=== PATIENT | male | born 1975 | race Caucasian/White ===

== ENCOUNTER 2020-09-12 16:48 | Emergency (ER) | payer BC, SELFPAY ==
[2020-09-12] VITALS (7 sets, daily range): BP systolic 130–142; BP diastolic 80–95; PULSE 65–111; RESP 15–18; TEMP 36.1–36.8; O2SAT 98–99; BMI 24.3
--- NOTE | 2020-09-12 17:19 | EDS_ITS ---
HPI HPI - Psych History of Present Illness Chief Complaint: Mental Health Informant: patient and police/telephone service representative Onset/Context/Timing Onset: - (unclear) Context: Gradual Onset Conflict: Family Timing: Continuous Current Severity: Moderate Maximum Severity: Moderate Worsened by: Situational factors Associated Symptoms Associated Symptoms - Psych: Positive for Paranoia; Negative for Suicidal Thoughts Narrative Narrative: Patient was brought in by police under the request of crisis because of paranoid and unusual behavior. Police state that he was talking about intent's that are placed around the community trying to keep track of him, people trying to get him, he states he took a DNA test and based on the results of that he knows he is not related to any of his biologic family members, he believes that his phone and Internet is being tapped into an watching him so he replaced his phone, he states size drones are flying throughout his neighborhood watching him. They are trying to sell his home. Apparently he was missing for 2 weeks no one knows where he went. Questionable whether these drones are actually visual hallucinations or not, the patient does not have any insight into anything abnormal. He denies any illness recently or injuries. He smokes cigarettes and tried to vape something else once but had a reaction and was seen in the ER at [facility] 4 weeks ago. No recent illness otherwise. PFSH PFSH no medical history Home Medications NK 09/12/20 [History Last Taken Unknown] Allergy/AdvReac Type Severity Reaction Status Date / Time No Known Allergies Allergy Verified 09/12/20 16:49 Social History (Updated 09/12/20 @ 17:[address] Sumanth Vallecillo MD) Smoking Status: Current every day smoker alcohol intake: current alcohol intake frequency: a few times a month Alcohol type: beer substance use type: does not use ROS ROS ED Constitutional Constitutional ED: Denies chills or fever(s) Eyes Eyes: Denies change in vision or diplopia ENT ENT ED: Denies rhinorrhea or sore throat Cardiovascular Cardiovascular: Denies chest pain or palpitations Respiratory/Chest Respiratory/Chest: Denies cough or dyspnea Gastrointestinal Gastrointestinal: Denies abdominal pain, diarrhea, nausea or vomiting Genitourinary Genitourinary ED: Denies dysuria or hematuria Musculoskeletal Musculoskeletal: Denies back pain or neck pain Integumentary Denies abscess or rash Neurologic Neurologic: Denies headache(s), paresthesias or weakness Psychiatric Psychiatric: Reports as per HPI, behavioral changes and paranoia; Denies anxiety or suicidal thoughts EXAM Physical Exam Const Vital Signs: 09/12/20 16:50 09/12/20 17:49 09/12/20 18:00 Temperature 97 F L Temperature Source Temporal Pulse Rate 111 H Respiratory Rate 16 16 16 Blood Pressure 142/95 H Blood Pressure Mean 110 Pulse Ox 98 Oxygen Delivery Method Room Air 09/12/20 19:15 09/12/20 21:28 Temperature Temperature Source Pulse Rate 65 Respiratory Rate 18 16 Blood Pressure 130/84 H Blood Pressure Mean 99 Pulse Ox 99 Oxygen Delivery Method Room Air Positive well nourished and well developed General Appearance ED: well developed and NAD HEENT Reports moist mucous membranes normocephalic and atraumatic Eyes PERRL and EOMs intact bilaterally Neck full ROM and supple Resp normal respiratory effort and clear to auscultation bilaterally Cardio regular rate, regular rhythm and no murmurs GI non-tender and non-distended Auscultation: normoactive bowel sounds Palpation: soft Back/Spine no CVA tenderness General Back: other FROM Extremity normal to inspection General Extremety ED: Negative for edema, pulses abnormal or tenderness General Extremity: Negative for edema or pulses abnormal Neuro oriented x3, CN's II-XII intact bilaterally and no sensory deficits noted Sensorium / Orientation: awake and alert Motor Exam: strength 5/5 throughout Psych denies hallucinations, denies homicidal ideation and denies suicidal ideation Appearance: grossly normal, appropriate and well kempt Attitude: calm Activity / Motor Behavior: appropriate eye contact Speech: normal speech Mood & Affect: other Patient states he feels fine just does not know why he is here. He is cooperative. Skin no rashes or lesions noted and no wounds MDM MDM MDM Narrative Medical decision making narrative: Patient's labs are all normal, and I was able to obtain records from [facility] 4 weeks ago where he was also seen because of symptoms of psychosis but eloped, he did indeed have a head CT that was normal. At this time he is medically cleared and social work/crisis evaluated him, agreeing that he needs to be admitted for further psychiatric evaluation. 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 Will be observed overnight. Lab Data Attestation: I reviewed the patient's lab results. Labs: Laboratory Results - last 24 hr 09/12/20 09/12/20 09/12/20 17:22 17:22 17:26 WBC 9.2 RBC 5.15 Hgb 15.1 Hct 44.6 MCV 86.6 MCH 29.3 MCHC 33.9 RDW Std Deviation 41.0 RDW Coeff of Yamila 12.9 Plt Count 164 MPV 11.0 Immature Gran % (Auto) 0.200 Neut % (Auto) 70.1 H Lymph % (Auto) 20.5 Jack % (Auto) 6.3 Eos % (Auto) 2.4 Baso % (Auto) 0.5 Absolute Neuts (auto) 6.5 Absolute Lymphs (auto) 1.89 Nucleated RBC % 0 Sodium Potassium Chloride Carbon Dioxide Anion Gap BUN Creatinine Estim Creat Clear Calc Est GFR (MDRD) Af Amer Est GFR (MDRD) Non-Af BUN/Creatinine Ratio Glucose Calcium Total Bilirubin AST ALT Alkaline Phosphatase Total Protein Albumin Globulin Albumin/Globulin Ratio TSH Urine Color Yellow Urine Clarity Clear Urine pH 6.0 Ur Specific Oneco 1.015 Urine Protein Negative Urine Glucose (UA) Normal Urine Ketones Negative Urine Occult Blood Negative Urine Nitrite Negative Urine Bilirubin Negative Urine Urobilinogen Normal Ur Leukocyte Esterase Negative Urine RBC 0 SEEN Urine WBC 0 SEEN Ur Squamous Epith Cells 0 SEEN Urine Bacteria 0 SEEN Urine Mucus 0 SEEN Urine Opiates Screen NEGATIVE Urine Methadone Screen NEGATIVE Ur Barbiturates Screen NEGATIVE Ur Phencyclidine Scrn NEGATIVE Ur Amphetamines Screen NEGATIVE U Methamphetamin-MDMA NEGATIVE U Benzodiazepines Scrn NEGATIVE Urine Cocaine Screen NEGATIVE U Cannabinoids Screen NEGATIVE Ur Drug Screen Comment Ethyl Alcohol 09/12/20 09/12/20 17:26 17:26 WBC RBC Hgb Hct MCV MCH MCHC RDW Std Deviation RDW Coeff of Yamila Plt Count MPV Immature Gran % (Auto) Neut % (Auto) Lymph % (Auto) Jack % (Auto) Eos % (Auto) Baso % (Auto) Absolute Neuts (auto) Absolute Lymphs (auto) Nucleated RBC % Sodium 141 Potassium 4.0 Chloride 109 H Carbon Dioxide 28.0 Anion Gap 4 L BUN 13 Creatinine 1.01 Estim Creat Clear Calc 97.37 Est GFR (MDRD) Af Amer 103 Est GFR (MDRD) Non-Af 86 BUN/Creatinine Ratio 12.9 Glucose 99 Calcium 8.5 Total Bilirubin 0.30 AST 11 L ALT 17 Alkaline Phosphatase 59 Total Protein 6.8 Albumin 3.6 Globulin 3.2 Albumin/Globulin Ratio 1.1 TSH 1.05 Urine Color Urine Clarity Urine pH Ur Specific Oneco Urine Protein Urine Glucose (UA) Urine Ketones Urine Occult Blood Urine Nitrite Urine Bilirubin Urine Urobilinogen Ur Leukocyte Esterase Urine RBC Urine WBC Ur Squamous Epith Cells Urine Bacteria Urine Mucus Urine Opiates Screen Urine Methadone Screen Ur Barbiturates Screen Ur Phencyclidine Scrn Ur Amphetamines Screen U Methamphetamin-MDMA U Benzodiazepines Scrn Urine Cocaine Screen U Cannabinoids Screen Ur Drug Screen Comment Ethyl Alcohol 3.0 Discharge Plan Triage Chief Complaint: Mental Health ED Provider: Sumanth Vallecillo Dx/Rx/DC Orders Clinical Impression: Acute psychosis Prescriptions: No Action NK RF: 0 Primary Care Provider: Care Physician,No Primary Referrals: Care Physician,No Primary [Primary Care Provider] - Disposition Disposition: Psychiatric Hospital or Unit Discharge Location: [facility]
[2020-09-12 17:41] LABS: Bacteria 0 SEEN /hpf (None Seen); Mucous, Urine 0 SEEN /hpf (<or=2+); Red Blood Cells-Urine 0 SEEN /hpf (0-5); Squamous Epithelial Cells - UA 0 SEEN /hpf (0-5); White Blood Cells 0 SEEN /hpf (0-5)
[2020-09-12 17:47] LABS: Absolute Lymphocyte Count 1.89 X10^3/uL (0.83-4.51); Absolute Neutrophil Count 6.5 X10^3/uL (2.0-7.7); Basophil# 0.05 X10^3/uL; Basophil% 0.5 % (0-1); Eosinophil# 0.22 X10^3/uL; Eosinophils% 2.4 % (0-5); Hematocrit 44.6 % (40-54); Hemoglobin 15.1 g/dL (13.0-16.5); Lymphocyte # 1.89 X10^3/ul (0.83-4.51); Lymphocyte % 20.5 % (19-41); Mean Corp Hgb Conc 33.9 g/dL (32-36); Mean Corpuscular Hgb 29.3 pg (27.0-32.0); Mean Corpuscular Volume 86.6 fL (80-94); Monocyte# 0.58 X10^3/uL; Monocyte% 6.3 % (0-10); NRBC Flagged by Analyzer 0 % (0-5); Neutrophil # 6.48 X10^3/uL (2.7-7.7); Neutrophil % 70.1 % (47-70); Platelet Count 164 K/mm3 (150-450); RBC Distribution Width CV 12.9 % (11.6-14.6); Red Blood Count 5.15 M/mm3 (4.6-6.2); White Blood Count 9.2 K/mm3 (4.4-11.0)
[2020-09-12 17:50] LABS: Color, Urine Yellow (Yellow); Glucose, Dipstick Normal (Normal); Ketone-Dipstick Negative (Negative); Leukocyte Esterase-Dipstick Negative /ul (Negative); Nitrite-Dipstick Negative (Negative); Occult Blood-Urine Negative /ul (Negative); Protein-Dipstick Negative (Negative); Specific Gravity, Urine 1.015 (1.002-1.030); Urine Bilirubin Dipstick Negative (Negative); Urine Clarity Clear (Clear); Urine Urobilinogen Normal (Normal)
[2020-09-12 18:08] LABS: ALB/GLOB Ratio 1.1 RATIO (0.9-2.4); AST(SGOT) 11 U/L (15-37); Alanine Aminotransfer ALT/SGPT 17 U/L (16-61); Albumin, Serum 3.6 g/dL (3.2-5.0); Alkaline Phosphatase 59 U/L (45-117); Anion Gap 4 (5-15); BUN 13 mg/dL (7-18); BUN/Creat Ratio 12.9 RATIO (10-20); Calcium,Total 8.5 mg/dL (8.5-10.1); Chloride 109 mmol/L (98-107); Creatinine, Serum 1.01 mg/dL (0.70-1.30); EST Glomerular Filtration Rate 86 mL/min (>60); Est Glom Filt Rate - Afr Amer 103 mL/min (>60); Estimated Creatinine Clearance 97.37 ml/min; Globulin 3.2 g/dL (2.2-4.2); Glucose 99 mg/dL (74-106); Protein, Total 6.8 g/dL (6.4-8.2); Sodium Level 141 mmol/L (136-145); Thyroid Stim Hormone (TSH) 1.05 uIU/mL (0.358-3.74)
[2020-09-12 18:22] LABS: Amphetamine Urine VISTA NEGATIVE (<1000 ng/mL); Barbiturate Urine VISTA NEGATIVE (< 200 ng/mL); Benzodiazepine Urine VISTA NEGATIVE (< 200 ng/mL); Cocaine Urine VISTA NEGATIVE (< 300 ng/mL); Ecstacy Urine VISTA NEGATIVE (< 500 ng/mL); Methadone Urine VISTA NEGATIVE (< 300 ng/mL); PCP Urine VISTA NEGATIVE (< 25 ng/mL); THC Urine VISTA NEGATIVE (< 50 ng/mL); Vista UDS pH Range 6
--- NOTE | 2020-09-12 18:49 | ED.RN ---
pt was found to not be in his room by this rn during safety checks, pt was located sitting outside the ER entrance waiting for a ride. The pink slip process was explained to the pt and the pt was accompanied back into the building, pt was calm and cooperative. SW at bedside currently.
--- NOTE | 2020-09-12 22:00 | CM.ED ---
NAE Assessment: Referral Source: MD Reason for Consult: [place] Of note, SW went into patient's room and he was not there. RN then stated patient was not in his room. SW and fire extinguisher charger went outside and saw patient outside on the sidewalk. He asked if this proposal lead writer and lug loader were his uber drivers. SW asked patient to come inside and he stated he is involved in a federal lawsuit involving his employer. Patient agreed to come inside and talk Chief Complaint.: Patient was asked why he is her and he responded there is a federal lawsuit involving me. Patient said there was an incident with my family members banging on my door 2 weeks and I called the police on them. Patient then said that the person banging on his door was his older sister. Patient then volunteered none of use are related when speaking about his siblings. Patient then asked this proposal lead writer to show a badge or business card verifying this proposal lead writer's role.SW provided patient with visual of badge. Marital History: Patient said that he has been since 2018. Patient said that he was in 2001. Patient was asked about children and he reports he has 4 children but stated that is in question now. Living situation: Patient reports that he resides in [place] in a house. When asked who he lives with he responded I am not answering any more questions. SW explained this proposal lead writer's role. Patient again explained that he was involved in a federal lawsuit and it is his coworkers that are trying to get him fired or his employers competition. He voiced that he was not sure if this proposal lead writer was involved in the conspiracy. Support/Resource: Patient did not voice any support. However, his sister called in and spoke to RN. Patient's sister reported concerns about patient and his mental health. History: None Education and Employment History: Patient graduated from [employer]. He reported he has an AA degree from [employer] in mechanical engineering and a bachelors degree in Business from [employer]. Patient then said I don't know if you watch the news.. but my employer is involved in a federal lawsuit. 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 He reports he has been employed by this company for over 20 years. Mental Health Treatment/History: Patient reports he never had a reason to get treatment when asked about MH treatment. However, later patient reports he went to the Counseling center 2 times when going through a divorce. Patient reports his PCP has never prescribed his Meds for depression or anxiety. Triggers or Stressors: Patient stated he has no triggers or stressors. He responded with this question with nothing. Coping skills: Patient reports working out is his coping skill. Abuse Issues: None reported. However, patient said I talked to a counselor about things I don't think I need to talk about here. Substance Abuse history: Patient denied drugs or alcohol use.He said that he smokes cigarettes. He reports drinking alcohol very infrequently which he quantified as 1x a month. Risk to self and others: Suicidal. Patient denied current suicidal ideation. Patient denied past suicidal ideations. Homicidal: Patient denied homicidal thoughts currently. Denied homicidal thoughts in the past. Mental Status Exam: Orientation. Patient is alert and Oriented x3. He reports that he is unsure why he is currently here. He reports he was workings out and the physiotherapy aide were at my door and again related that his company is involved in a federal lawsuit. Memory: Impaired due to current paranoia. Appearance/General Behavior: Clean and appropriately clothes. He put clothes on to go back outside to leave but then wore a hospital gown. Mood/Affect. Calm. Terse. Intense eye contact Communication Patterns: Responds to questions. Questions if this proposal lead writer is part of the conspiracy. General Intellectual Functioning: Above Average Judgement: Impaired due to paranoia Insight: Poor Assessment: Patient reports his mood is normal. He denied grief issues. Patient denied anxiety. Patient denied traumatic stress. Patient said he has no anger out of the ordinary. Patient denies auditory hallucinations or visual hallucinations. SW asked patient if he had special boggs and he said that seems out of the ordinary questions. Patient reports no issues with sleep and stated he sleeps 6-8 hours at night. Patient said that the placement of individuals in psychiatric facilities is against the law and you need a court order. SW advised that was not accurate and under a Application for Emergency Hospital Placement ([place]) a patient can be placed in a hospital for psychiatric Evaluation. Patient said will I be billed for this?. SW advised that his insurance will be billed. He responded well, that will be part of the federal lawsuit. Patient is fixated on federal lawsuit and repeatedly brought it up during the assessment. Patient needs inpatient psychiatric facility for stabilization of his current mental health. His current psychiatric condition make him at risk to self and others as he is experiencing paranoid delusions. Plan: Inpatient psychiatric Hospitalization for Stabilization. NAE met with and he agreed that patient needs to be referred for psychiatric hospitalization. NAE called [facility] and spoke to admissions. NAE made referral and faxed referral to [facility] for review. NAE called repeatedly to [facility] to check on Status of the referral. Nae called Travis at [facility] and he said that patient had been approved for inpatient psych hospitalization. He advised to contact him for RN to RN report. He said that patient will need to come after 7am in the morning. RN was advised of patient's admission and that he can not go till after 7am. MD was updated abut patients admission and that he can not go till after 7am on 09/13/20. NAE spoke to patient's RN who will update patient. advised that [facility] records indicated that patient was at their facility 2 weeks ago for hallucinations and eloped. Crispin, ED Senior Project Coordinator, will secure transport. Transfer Paperwork and [place] completed by . All staff updated that patient can go to [facility] after 7am on 09/13/20. Plan: Inpatient psychiatric hospitalization at [facility]. Dore[facility]
--- NOTE | 2020-09-12 22:47 | ED.RN ---
Sister calls and reports patient went through divorce and issues with work due to mental health issues, and HR got involved and has been having issues and there are children involved with the ex . States he has 4 children and 3 still visit with him, and he wrote on social media today that the kids are not his and his name is not really his name and not related to anyone in the family and was kidnapped in 1977. States none of that is true and states she went to check on him via [employer] and then patient called on her too. She states the children are with him more and now there is the chance he will lose his job and this is an issue.
--- NOTE | 2020-09-12 23:06 | ED.RN ---
Patient aware of [facility] and aware will not be leaving until morning.
--- NOTE | 2020-09-12 23:12 | ED.RN ---
TRANSPORT SCHEDULED FOR A 0700 PICKUP. PT CAN NOT ARRIVE AT [facility] TILL 0700.
[2020-09-13] VITALS (7 sets, daily range): BP systolic 118–128; BP diastolic 70–77; PULSE 62–74; RESP 14–17; TEMP 36.6; O2SAT 97–99
== END 2020-09-13 07:01 ==
PROVIDERS: Emergency Provider Emergency Medicine
DX: F23 Brief psychotic disorder (principal); F17.210 Nicotine dependence, cigarettes, uncomplicated
CPT/HCPCS: 36415; 80053; 80307; 81001; 82077; 84443; 85025; 87426; 99285